=== PATIENT | male | born 1985 | race African-American/Black ===

== ENCOUNTER 2018-11-19 00:57 | Emergency (ER) | payer OTHER ==
[~2018-11-19] VITALS: Ht 193 cm; Wt 108.9 kg
[2018-11-19 01:36] VITALS: BP 170/75
== END 2018-11-19 03:49 | disposition home or self-care (01) ==
LOC: ER 01:04
DX: F41.9 Anxiety disorder, unspecified (principal)
CPT/HCPCS: 80305